=== PATIENT | female | born 1960 | race African-American/Black ===

== ENCOUNTER 2017-02-08 19:48 | Emergency (ER) | payer BC ==
[2017-02-08 20:28] LABS: Bilirubin Negative (Negative); Blood, Urine Negative (Negative); Glucose, Urine (Dipstick) Negative (Negative); Ketone, Urine Trace mg/dL (Negative); Nitrite Negative (Negative); Protein, Urine (Dipstick) Negative (Neg-Trace)
[2017-02-08] MEDS ORDERED: Morphine Sulfate 2 MG/ML SYRINGE ONE (20:40)
[2017-02-08] MEDS ORDERED: Ketorolac Tromethamine 30 MG/ML VIAL ONE (20:41)
[2017-02-08] MEDS ORDERED: methylPREDNISolone Sod Succ/PF 125 MG/2 ML VIAL ONE (20:41)
[2017-02-08 20:45] LABS: #Basophils 0.1 thou/uL (0.0-0.2); #Eosinphils 0.1 thou/uL (0.0-0.7); #Lymphocytes 2.4 thou/uL (1.20-3.40); #Monocytes 0.5 thou/uL (0.11-0.59); #Neutrophils 2.7 thou/uL (1.40-6.50); %Basophils 1.3 % (0.0-1.0); %Eosinophils 1.4 % (0.0-10.0); %Lymphocytes 41.8 % (21.0-51.0); %Monocytes 8.4 % (0.0-10.0); Hematocrit 38.2 % (36.0-47.0); Red Blood Cell (RBC) Count 4.38 mill/uL (4.20-5.40); White Blood Cell (WBC) Count 5.7 thou/uL (4.8-10.8)
[2017-02-08 20:59] LABS: ALT (SGPT) 24 U/L (8-55); AST (SGOT) 23 U/L (5-34); Alkaline Phosphatase 74 U/L (40-150); Anion Gap 12 mmol/L (10-20); BUN (Urea Nitrogen) 14 mg/dL (9.8-20.1); Bilirubin, Total 0.6 mg/dL (0.2-1.2); Calc. Creatinine Clearance 0 mL/min (70-130); Calcium 10.1 mg/dL (7.8-10.44); Carbon Dioxide 28 mmol/L (22-29); Chloride 105 mmol/L (98-107); Estimated GFR-MDRD 84; Globulin 3.7 g/dL (2.4-3.5); Protein, Total 8.2 g/dL (6.0-8.3)
== END 2017-02-08 22:28 | disposition home or self-care (01) ==
LOC: SCSER 19:48
DX: G89.29 Other chronic pain (principal); M54.5 Low back pain; J45.909 Unspecified asthma, uncomplicated; F32.9 Major depressive disorder, single episode, unspecified; Z87.891 Personal history of nicotine dependence
CPT/HCPCS: 80053; 81003; 85025; 86140; 87491; 87591; 96374; 96375; 96376; J1885; J2270; J2930

== ENCOUNTER 2017-06-12 09:51 | Outpatient (CLI) | payer BC ==
--- NOTE | 2017-06-12 12:00 | MRI ---
MRI LUMBAR SPINE WITHOUT CONTRAST: HISTORY: Back pain. Bilateral leg pain for six years. COMPARISON: None. TECHNIQUE: Multiplanar, multisequence MR images were obtained of the lumbar spine without contrast. FINDINGS: Generalized disk desiccation is seen. 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 The conus medullaris terminates normally at L1. There is a 2.1 cm cyst in the right kid jose j. The other prevertebral and paraspinal soft tissues are unremarkable. T12-L1: A small disk osteophyte complex is seen. Mild bilateral posterior facet arthrosis. No cent ral canal stenosis. No neural foraminal stenosis. L1-L2: A small disk osteophyte complex is seen. Mild bilateral posterior facet arthrosis. No centr al canal stenosis. No neural foraminal stenosis. L2-L3: A small disk osteophyte complex is seen. Mild bilateral posterior facet arthrosis. No centr al canal stenosis. No neural foraminal stenosis. L3-L4: A small disk osteophyte complex is seen. Moderate bilateral posterior facet arthrosis. No c entral canal stenosis. Moderate bilateral neural foraminal stenosis. L4-L5: A small disk osteophyte complex is seen. Moderate bilateral posterior facet arthrosis. Mild central canal stenosis. Moderate bilateral neural foraminal stenosis. L5-S1: Unremarkable. IMPRESSION: Degenerative changes of the lumbar spine, as above. POS: [facility]
== END 2017-06-12 09:52 | disposition home or self-care (01) ==
LOC: MRI 09:51
PROVIDERS: ATTEND Neurological Surgery
DX: M47.26 Other spondylosis with radiculopathy, lumbar region (principal)
CPT/HCPCS: 72148

== ENCOUNTER 2017-07-06 20:25 | Emergency (ER) | payer BC ==
[2017-07-06] MEDS ORDERED: Ketorolac Tromethamine 30 MG/ML VIAL ONE (21:23)
--- NOTE | 2017-07-06 21:56 | RAD ---
LUMBAR SPINE THREE VIEWS: 07/06/17 HISTORY: Trauma, back pain. FINDINGS/IMPRESSION: Comparison made with exam of 01/18/14. Levoscoliosis of the lumbar spine is again noted. Degenerative changes are present. No acute fracture or subluxation is identified. POS: [facility]
--- NOTE | 2017-07-06 21:57 | RAD ---
RIGHT HIP TWO VIEWS: 07/06/17 HISTORY: Trauma, fall, right hip pain. FINDINGS/IMPRESSION: No acute fracture or dislocation is identified. POS: [facility]
--- NOTE | 2017-07-06 21:57 | RAD ---
RIGHT FEMUR TWO VIEWS: 07/06/17 HISTORY: Fall, trauma, right thigh pain, right lower extremity pain. FINDINGS/IMPRESSION: The right femur is intact. POS: [facility]
--- NOTE | 2017-07-06 21:59 | RAD ---
RIGHT KNEE FOUR VIEWS: 07/06/17 HISTORY: Trauma, fall, right knee pain. FINDINGS/IMPRESSION: No acute fracture or dislocation is seen. No significant interval changes seen since exam of 08/29/16. The small well corticated round ossification or calcification superior to the upper pole of the town[place] la is stable since 01/30/16. POS: [facility]
[2017-07-06] MEDS ORDERED: Dexamethasone 4 mg/ml Vial ONE (22:29)
[2017-07-06] MEDS ORDERED: Morphine 4 MG/ML VIAL ONE (22:29)
== END 2017-07-06 23:01 | disposition home or self-care (01) ==
LOC: ERS 20:25
DX: M54.5 Low back pain (principal); J45.909 Unspecified asthma, uncomplicated; F32.9 Major depressive disorder, single episode, unspecified; Z87.891 Personal history of nicotine dependence; Z79.899 Other long term (current) drug therapy; W10.9XXA Fall (on) (from) unspecified stairs and steps, initial encounter
CPT/HCPCS: 72100; 96372; J1100; J1885; J2270

== ENCOUNTER 2017-07-13 13:58 | Outpatient (CLI) | payer BC ==
[2017-07-13 14:52] LABS: Hemoglobin 12.6 g/dL (12.0-16.0); Mean Corpuscular HGB CONC 31.1 g/dL (32.0-36.0); Mean Corpuscular Hemoglobin 28.8 pg (27.0-31.0); Mean Corpuscular Volume 92.5 fl (81.0-99.0); Mean Platelet Volume 8.6 fL (7.4-10.4); Platelet Count 289 thou/uL (130-400); RBC Distribution Width 11.9 % (11.5-14.5); Red Blood Cell (RBC) Count 4.39 mill/uL (4.20-5.40); White Blood Cell (WBC) Count 9.3 thou/uL (4.8-10.8)
[2017-07-13 15:13] LABS: Anion Gap 12 mmol/L (10-20); BUN (Urea Nitrogen) 12 mg/dL (9.8-20.1); Calc. Creatinine Clearance 0 mL/min (70-130); Calcium 9.6 mg/dL (7.8-10.44); Carbon Dioxide 30 mmol/L (22-29); Chloride 103 mmol/L (98-107); Estimated GFR-MDRD 80; Glucose 110 mg/dL (70-105); Potassium 3.7 mmol/L (3.5-5.1); Sodium 141 mmol/L (136-145)
== END 2017-07-13 13:59 | disposition home or self-care (01) ==
LOC: LABBT 13:58
PROVIDERS: ATTEND Neurological Surgery
DX: Z01.818 Encounter for other preprocedural examination (principal); Z01.812 Encounter for preprocedural laboratory examination; M54.16 Radiculopathy, lumbar region
CPT/HCPCS: 80048; 85027; 93005; 93010

== ENCOUNTER 2017-07-16 07:03 | Day surgery (SDC) | payer BC ==
[2017-07-13 10:40] VITALS: BMI 25.8
[2017-07-16] MEDS ORDERED: CEFAZOLIN/Water 2 GM/20 ML SYRINGE ONE (08:49)
[2017-07-16] MEDS ORDERED: Sodium Chloride 0.9% 10 ML ONE (09:05)
[2017-07-16] MEDS ORDERED: Fentanyl 250 MCG/5 ML VIAL ONE ×2 (09:07→11:17)
[2017-07-16] MEDS ORDERED: Midazolam HCl 2 mg/2 ml Vial ONE (09:07)
[2017-07-16] MEDS ORDERED: Lidocaine 1% PF 5 ML VIAL ONE (09:31)
[2017-07-16] MEDS ORDERED: Ondansetron HCl/PF 4 MG/2 ML Vial ONE (09:31)
[2017-07-16] MEDS ORDERED: Glycopyrrolate 0.2 MG/ML 5 ML SYRINGE ONE (09:31)
[2017-07-16] MEDS ORDERED: Dexamethasone 20 MG/5 ML VIAL ONE (09:31)
[2017-07-16] MEDS ORDERED: Propofol 200 MG/20 ML VIAL ONE (09:31)
--- NOTE | 2017-07-16 11:43 | OP ---
DATE OF PROCEDURE: 07/16/2017 SURGEON: Maxime Ruano M.D. [employer] OPERATOR: Yu Hollingsworth PROCEDURE: Right L3-4 laminectomy, facetectomy, foraminotomy, interbody arthrodesis, intravertebral biomechanical device, local morselized autograft, demineralized bone matrix, posterior lateral arthro desis L3-4. PROCEDURE IN DETAIL: The patient was brought to the operating room and intubated. She was rolled in the prone position on gel-filled chest rolls. Incision made exposing L3 and L4 bilaterally and our level was confirmed by x-ray. We performed a right-sided L3-4 laminectomy and total facetectomy comp letely decompressing right L3 and right L4. Next, the disc was incised and debrided and the bony end plates decorticated for the purpose of arthrodesis. An appropriately sized intravertebral biomechani mayito PEEK device was brought into the field, filled with demineralized bone matrix, local morselized a utograft, and tapped into place securely at L3-4. Next, pedicle screws were placed at right L3 and r ight L4 using lateral fluoroscopic guidance and the positioning was confirmed with rotational x-ray. Lew was secured between the screws, connected by nuts which were final tightened. The wound was the n extensively irrigated, immaculate hemostasis was secured. A combination of demineralized bone matr ix and local morselized autograft was laid over the laminar and posterolateral surfaces for the purpo se of arthrodesis. Vancomycin powder was applied and the wound was closed in anatomic layers.
[2017-07-16] MEDS ORDERED: HYDROmorphone 0.5 MG/0.5 ML SYRINGE ONE (12:17)
[2017-07-16] MEDS ORDERED: Promethazine HCl 25 MG/ML VIAL ONE (12:20)
[2017-07-16] MEDS ORDERED: HYDROcodone/Acetaminophen 5/325 mg Tablet ONE (15:06)
== END 2017-07-16 16:54 | disposition home or self-care (01) ==
LOC: SDC 07:03
PROVIDERS: ATTEND Neurological Surgery
PROC: 0ST20ZZ Resection of Lumbar Vertebral Disc, Open Approach (ICD-10-PCS; principal; 2017-07-16)
PROC: 0SG00AJ Fusion of Lumbar Vertebral Joint with Interbody Fusion Device, Posterior Approach, Anterior Column, Open Approach (ICD-10-PCS; principal; 2017-07-16)
DX: M54.16 Radiculopathy, lumbar region (principal); J45.909 Unspecified asthma, uncomplicated; J44.9 Chronic obstructive pulmonary disease, unspecified; F41.9 Anxiety disorder, unspecified; F32.9 Major depressive disorder, single episode, unspecified; E03.9 Hypothyroidism, unspecified; M06.9 Rheumatoid arthritis, unspecified; Z79.899 Other long term (current) drug therapy
CPT/HCPCS: 76001; 96374; 96375; A4216; C1713; C1768; J1100; J1170; J2001; J2250; J2405; J2550; J2704; J3010; J3370; J3490

== ENCOUNTER 2017-08-02 15:27 | Outpatient (CLI) | payer BC ==
--- NOTE | 2017-08-02 15:50 | RAD ---
TWO VIEWS LUMBAR SPINE: History: Follow up surgery. Comparison: 07-06-17 FINDINGS: There is an intervertebral disc space now present at L3-4. There is posterolateral spinal instrumenta tion spanning L3-4 on the right. The pedicle screws and interconnecting von projecting in the expecte d position. Thoracolumbar scoliosis is similar. IMPRESSION: Post-operative lumbar spine. POS: [facility]
== END 2017-08-02 15:28 | disposition home or self-care (01) ==
LOC: TBSIIMAG 15:27
PROVIDERS: ATTEND Neurological Surgery
DX: M54.9 Dorsalgia, unspecified (principal); Z98.890 Other specified postprocedural states
CPT/HCPCS: 72100

== ENCOUNTER 2017-09-13 14:16 | Outpatient (CLI) | payer MEDICAID ==
--- NOTE | 2017-09-13 15:09 | RAD ---
TWO VIEWS LUMBOSACRAL SPINE: COMPARISON: 08/02/17. HISTORY: Lumbar radiculopathy and right hip pain. FINDINGS: Two views lumbosacral spine show the patient to be status post posterior fusion of L3 and L4 with rig ht-sided pedicle screws. There is scoliotic curvature of the spine. A disk spacer is seen along the right aspect of the intervening disk space. No perihardware lucency is seen. The vertebral bodies demonstrate normal alignment without subluxation. IMPRESSION: Postsurgical changes of the lumbar spine without evidence of complication. POS: [facility]
== END 2017-09-13 14:17 | disposition home or self-care (01) ==
LOC: TBSIIMAG 14:16
PROVIDERS: ATTEND Neurological Surgery
DX: M51.16 Intervertebral disc disorders with radiculopathy, lumbar region (principal); Z98.890 Other specified postprocedural states
CPT/HCPCS: 72100

== ENCOUNTER 2017-09-28 10:02 | Outpatient (CLI) | payer MEDICAID ==
--- NOTE | 2017-09-28 11:26 | RAD ---
RIGHT HIP TWO VIEWS: HISTORY: Pain. COMPARISON: 07/06/2017 FINDINGS: The contour of the femoral head is maintained. No fracture. Hip joint space is preserved. IMPRESSION: Unremarkable two views right hip. POS: [facility]
--- NOTE | 2017-09-28 12:40 | MRI ---
MRI RIGHT HIP WITHOUT CONTRAST ENHANCEMENT: HISTORY: Right hip pain. FINDINGS: Postoperative changes of the lower lumbar spine are noted. The SI joints are symmetric. No signs of any insufficiency type fracture. Some very mild edema changes in the region of the greater trochanter of the left hip, suggesting some mild trochanteric bursitis type change. Small field of view images of the right hip show arthritic change. The hip labrum is not very well v isualized on this nonarthrographic exam. No definite abnormalities. There is a lower grade partial tear of the more anterior aspect of the gluteus medius tendon. The gluteus minimus tendon appears in tact. No signs of muscle strain. Hamstring tendon origins appear unremarkable. IMPRESSION: Mild arthritic changes of the right hip with a lower grade partial tear of the gluteus medius tendon insertion on the greater trochanter. POS: [facility]
== END 2017-09-28 10:03 | disposition home or self-care (01) ==
LOC: TBSIIMAG 10:02
PROVIDERS: ATTEND Neurological Surgery
DX: M16.11 Unilateral primary osteoarthritis, right hip (principal); S76.011A Strain of muscle, fascia and tendon of right hip, initial encounter

== ENCOUNTER 2017-11-03 20:03 | Emergency (ER) | payer BC, OTHER ==
--- NOTE | 2017-11-03 20:52 | RAD ---
FOUR VIEWS OF THE RIGHT KNEE: 11/03/17 COMPARISON: 07/06/17. HISTORY: Fall down stairs with the right knee and hip pain. FINDINGS: Four views of the right knee shows no evidence of acute fracture or dislocation. No knee effusion is seen. No degenerative changes are seen. IMPRESSION: Unremarkable exam. POS: [facility]
--- NOTE | 2017-11-03 20:53 | RAD ---
TWO VIEWS OF THE RIGHT HIP 11/03/17 COMPARISON: 09/28/17. HISTORY: Fell down stairs with right hip pain. FINDINGS: Two views of the right hip shows no evidence of acute fracture or dislocation. No degenerative change s are seen in the right hip. Hardware is seen in the spine. IMPRESSION: No evidence of acute osseous abnormality of the right hip. POS: [facility]
[2017-11-03] MEDS ORDERED: Cyclobenzaprine 10 MG TAB ONE (21:17)
[2017-11-03] MEDS ORDERED: Ketorolac Tromethamine 60 MG/2 ML VIAL ONE (21:17)
== END 2017-11-03 22:09 | disposition home or self-care (01) ==
LOC: ERS 20:03
DX: M25.551 Pain in right hip (principal); M25.561 Pain in right knee; J45.909 Unspecified asthma, uncomplicated; G89.29 Other chronic pain; F32.9 Major depressive disorder, single episode, unspecified; E28.2 Polycystic ovarian syndrome; Z87.891 Personal history of nicotine dependence; Z79.899 Other long term (current) drug therapy; W10.9XXA Fall (on) (from) unspecified stairs and steps, initial encounter
CPT/HCPCS: 96372; J1885

== ENCOUNTER 2017-12-04 15:15 | Outpatient (CLI) | payer MEDICAID, OTHER ==
--- NOTE | 2017-12-04 16:16 | RAD ---
TWO VIEWS LUMBAR SPINE: 12/04/17 HISTORY: Lumbar spine, M54.16. AP and lateral views lumbar spine is obtained on 12/04/17. Comparison made to previous exam from 09/13/17. Images demonstrate S-shaped scoliosis of the spine. Right L3-[address]. No evidence of acute lumbar spine fracture seen. No signific ant interval changes are seen since the previous comparison exam from August 2017. IMPRESSION: 1. Postsurgical changes. 2. Scoliosis. POS: [facility]
== END 2017-12-04 15:16 | disposition home or self-care (01) ==
LOC: TBSIIMAG 15:15
PROVIDERS: ATTEND Neurological Surgery
DX: M54.16 Radiculopathy, lumbar region (principal); M41.9 Scoliosis, unspecified; Z98.890 Other specified postprocedural states
CPT/HCPCS: 72100

== ENCOUNTER 2018-03-07 10:32 | Emergency (ER) | payer OTHER, SELFPAY ==
[2018-03-07 11:34] LABS: #Basophils 0.1 thou/uL (0.0-0.2); #Eosinphils 0.1 thou/uL (0.0-0.7); #Lymphocytes 2.4 thou/uL (1.20-3.40); #Monocytes 0.5 thou/uL (0.11-0.59); #Neutrophils 2.2 thou/uL (1.40-6.50); %Basophils 2.1 % (0.0-1.0); %Eosinophils 2.3 % (0.0-10.0); %Lymphocytes 44.9 % (21.0-51.0); %Monocytes 8.5 % (0.0-10.0); %Neutrophils 42.1 % (42.0-75.0); Hemoglobin 13.4 g/dL (12.0-16.0); Mean Corpuscular HGB CONC 30.9 g/dL (32.0-36.0); Mean Corpuscular Hemoglobin 27.9 pg (27.0-31.0); Mean Corpuscular Volume 90.2 fL (78.0-98.0); Mean Platelet Volume 7.8 fL (7.4-10.4); Platelet Count 299 thou/uL (130-400); RBC Distribution Width 11.4 % (11.5-14.5); Red Blood Cell (RBC) Count 4.81 mill/uL (4.20-5.40); White Blood Cell (WBC) Count 5.2 thou/uL (4.8-10.8)
--- NOTE | 2018-03-07 11:35 | RAD ---
PA AND LATERAL VIEWS OF THE CHEST: History: Cough. FINDINGS: The heart size is normal. The lungs are expanded without focal areas of consolidation, pneumothorax, or pleural effusions. There is scoliosis of the spine. There are post op changes and metallic hardwar e in the lumbar spine. IMPRESSION: No radiographic evidence of acute cardiopulmonary process. POS: [facility]
[2018-03-07 11:56] LABS: ALT (SGPT) 27 U/L (8-55); AST (SGOT) 24 U/L (5-34); Albumin 4.5 g/dL (3.5-5.0); Alkaline Phosphatase 72 U/L (40-150); Anion Gap 11 mmol/L (10-20); BUN (Urea Nitrogen) 8 mg/dL (9.8-20.1); Bilirubin, Total 0.7 mg/dL (0.2-1.2); Calc. Creatinine Clearance 0 mL/min (70-130); Calcium 10.1 mg/dL (7.8-10.44); Carbon Dioxide 33 mmol/L (22-29); Chloride 97 mmol/L (98-107); Estimated GFR-MDRD 75; Globulin 3.5 g/dL (2.4-3.5); Glucose 79 mg/dL (70-105); Potassium 3.6 mmol/L (3.5-5.1); Sodium 137 mmol/L (136-145)
[2018-03-07] MEDS ORDERED: Ondansetron ODT 4 MG TAB ONE (11:57)
[2018-03-07] MEDS ORDERED: predniSONE 20 MG TAB ONE (11:57)
== END 2018-03-07 13:28 | disposition home or self-care (01) ==
LOC: ERS 10:32
DX: J45.901 Unspecified asthma with (acute) exacerbation (principal); Z87.891 Personal history of nicotine dependence; Z79.899 Other long term (current) drug therapy
CPT/HCPCS: 36415; 71046; 80053; 85025; 94640; J7506; J7620; Q0162

== ENCOUNTER 2018-09-11 11:41 | Outpatient (CLI) | payer BC ==
--- NOTE | 2018-09-11 12:02 | RAD ---
EXAM: 3 views of the right foot HISTORY: Foot pain COMPARISON: None FINDINGS: 3 views of the right foot shows no evidence of acute fracture or dislocation. No soft tissu e swelling is seen. No degenerative changes are present. IMPRESSION: No evidence of acute osseous abnormality.
== END 2018-09-11 11:42 | disposition home or self-care (01) ==
LOC: RAD 11:41
PROVIDERS: ATTEND Family Medicine
DX: S99.921A Unspecified injury of right foot, initial encounter (principal)

== ENCOUNTER 2018-09-14 07:10 | Emergency (ER) | payer BC ==
[2018-09-14] MEDS ORDERED: Dexamethasone 10 MG/ML VIAL ONE (07:43)
[2018-09-14] MEDS ORDERED: Ketorolac Tromethamine 60 MG/2 ML VIAL ONE (07:43)
[2018-09-14] MEDS ORDERED: Albuterol Sulfate 2.5 mg/3 ml Neb ONE (07:51)
--- NOTE | 2018-09-14 08:01 | RAD ---
PORTABLE CHEST: HISTORY: Fever and cough. FINDINGS: Lungs appear clear on this 1-view projection. Heart and mediastinum unremarkable. IMPRESSION: No acute finding. POS: [facility]
== END 2018-09-14 08:55 | disposition home or self-care (01) ==
LOC: ERS 07:10
DX: J20.9 Acute bronchitis, unspecified (principal); I10 Essential (primary) hypertension; E03.9 Hypothyroidism, unspecified; Z87.891 Personal history of nicotine dependence; Z79.899 Other long term (current) drug therapy; Z79.51 Long term (current) use of inhaled steroids
CPT/HCPCS: 71046; 94640; 96372; J1100; J1885; J7611

== ENCOUNTER 2018-10-02 14:07 | Outpatient (CLI) | payer BC ==
--- NOTE | 2018-10-02 14:30 | RAD ---
EXAM: Chest 2 views: HISTORY: Dyspnea COMPARISON: 09/14/2018 FINDINGS: Prominent levoscoliosis with postop changes in the lumbar spine. Heart size:Within normal limits. Lungs:Clear of acute process. Atherosclerotic changes of the aorta. No confluent pneumonia, overt edema, pleural effusion, pneumothorax, or other significant acute proce ss. IMPRESSION: Stable exam. Atherosclerosis of the aorta. No acute intrathoracic disease.
== END 2018-10-02 14:08 | disposition home or self-care (01) ==
LOC: RAD 14:07
PROVIDERS: ATTEND Pediatrics
DX: R06.00 Dyspnea, unspecified (principal); I70.0 Atherosclerosis of aorta
CPT/HCPCS: 71046

== ENCOUNTER → 2018-10-02 | Outpatient (CLI) | payer BC ==
--- NOTE | 2018-10-08 16:25 | RAD ---
"PRELIMINARY REPORT" EXAM: Chest 2 views: HISTORY: Dyspnea COMPARISON: 09/14/2018 FINDINGS: Prominent levoscoliosis with postop changes in the lumbar spine. Heart size: Within normal limits. Lungs: Clear of acute process. Atherosclerotic changes of the aorta. No confluent pneumonia, overt edema, pleural effusion, pneumothorax, or other significant acute proce ss. IMPRESSION: Stable exam. Atherosclerosis of the aorta. No acute intrathoracic disease. Transcribed Date/Time: 10/08/2018 4:22 PM
== END ==
LOC: RAD 14:08
PROVIDERS: ATTEND Internal Medicine Critical Care Medicine
DX: R06.00 Dyspnea, unspecified (principal); I70.0 Atherosclerosis of aorta
CPT/HCPCS: 71046

== ENCOUNTER 2019-03-18 16:50 | Emergency (ER) | payer BC ==
[2019-03-18 17:59] LABS: Bacteria/HPF None Seen HPF (None Seen); Bilirubin Negative (Negative); Blood, Urine Negative (Negative); Calcium Oxalate Crystals 4+ HPF (None Seen); Clarity Clear (Clear); Glucose, Urine (Dipstick) Normal (Negative); Leukocyte 25 Leu/uL (Negative); Mucous/LPF Rare LPF (<2+); Nitrite Negative (Negative); Protein, Urine (Dipstick) 10 mg/dL (Neg-Trace); RBC/HPF 0-3 HPF (0-3); Squamous Epithelial 0-3 HPF (0-3); WBC/HPF 0-3 HPF (0-3)
[2019-03-18] MEDS ORDERED: Morphine 4 MG/ML VIAL ONE (18:18)
[2019-03-18] MEDS ORDERED: Ondansetron PF 4 MG/2 ML Vial ONE (18:19)
[2019-03-18 18:31] LABS: #Basophils 0.1 thou/uL (0.0-0.2); #Eosinphils 0.1 thou/uL (0.0-0.7); #Lymphocytes 2.5 thou/uL (1.20-3.40); #Monocytes 0.4 thou/uL (0.11-0.59); #Neutrophils 2.4 thou/uL (1.40-6.50); %Basophils 0.9 % (0.0-1.0); %Eosinophils 1.7 % (0.0-10.0); %Lymphocytes 45.6 % (21.0-51.0); %Monocytes 7.5 % (0.0-10.0); %Neutrophils 44.3 % (42.0-75.0); Hemoglobin 12.5 g/dL (12.0-16.0); Mean Corpuscular Hemoglobin 29.5 pg (27.0-31.0); Mean Corpuscular Volume 89.5 fL (78.0-98.0); Mean Platelet Volume 8.5 fL (7.4-10.4); Platelet Count 241 thou/uL (130-400); RBC Distribution Width 11.5 % (11.5-14.5); Red Blood Cell (RBC) Count 4.23 mill/uL (4.20-5.40); White Blood Cell (WBC) Count 5.5 thou/uL (4.8-10.8)
--- NOTE | 2019-03-18 19:06 | CT ---
EXAM: Abdomen and pelvic CT scan without contrast: HISTORY: Right flank pain COMPARISON: 12/03/2016 FINDINGS: Moderate lumbar spine scoliosis and postoperative pedicle screws on the right side at L3 and L4. Left hemidiaphragm elevation. The visualized lung bases are clear. Liver: Unremarkable. Gallbladder:Postop cholecystectomy. Pancreas:Unremarkable Spleen:Unremarkable. Adrenal glands:Unremarkable. Kidneys:Tiny nonobstructing left upper pole renal calculus. No evidence for acute obstruction or u reteral calculus. 2 cm diameter circumscribed hypodensity in the right kidney evidence for small cysts, stable. No evidence for bowel obstruction. No CT evidence for acute appendicitis. The urinary bladder is unremarkable. Reproductive system:Unremarkable No abscess, adenopathy, or abnormal fluid collection within the abdomen or pelvis. Moderate solid fecal material throughout the colon. IMPRESSION: No obstructing calculus. Normal-appearing appendix. Tiny nonobstructing left upper pole renal calc ulus. Other findings as above. No significant acute process.
[2019-03-18 19:30] LABS: ALT (SGPT) 14 U/L (8-55); AST (SGOT) 18 U/L (5-34); Albumin 4.6 g/dL (3.5-5.0); Alkaline Phosphatase 63 U/L (40-110); Anion Gap 15 mmol/L (10-20); BUN (Urea Nitrogen) 17 mg/dL (9.8-20.1); Bilirubin, Total 0.7 mg/dL (0.2-1.2); Calc. Creatinine Clearance 0 mL/min (70-130); Calcium 9.8 mg/dL (7.8-10.44); Carbon Dioxide 24 mmol/L (22-29); Chloride 105 mmol/L (98-107); Estimated GFR-MDRD 68; Globulin 3.2 g/dL (2.4-3.5); Glucose 78 mg/dL (70-105); Lipase 25 U/L (8-78); Potassium 3.9 mmol/L (3.5-5.1); Protein, Total 7.8 g/dL (6.0-8.3); Sodium 140 mmol/L (136-145)
== END 2019-03-18 22:39 | disposition home or self-care (01) ==
LOC: ERS 16:50
DX: N20.0 Calculus of kidney (principal); N28.1 Cyst of kidney, acquired; J45.909 Unspecified asthma, uncomplicated; I10 Essential (primary) hypertension; E03.9 Hypothyroidism, unspecified; Z87.891 Personal history of nicotine dependence; Z79.899 Other long term (current) drug therapy; Z79.51 Long term (current) use of inhaled steroids
CPT/HCPCS: 36415; 74176; 80053; 81003; 81015; 83690; 85025; 96361; 96374; 96375; J2270; J2405

== ENCOUNTER 2019-03-21 19:10 | Emergency (ER) | payer BC ==
[2019-03-21 20:00] LABS: #Basophils 0.1 thou/uL (0.0-0.2); #Eosinphils 0.1 thou/uL (0.0-0.7); #Lymphocytes 2.9 thou/uL (1.20-3.40); #Monocytes 0.5 thou/uL (0.11-0.59); #Neutrophils 2.5 thou/uL (1.40-6.50); %Basophils 1.1 % (0.0-1.0); %Monocytes 7.5 % (0.0-10.0); %Neutrophils 41.5 % (42.0-75.0); Mean Corpuscular HGB CONC 32.5 g/dL (32.0-36.0); Mean Corpuscular Hemoglobin 29.5 pg (27.0-31.0); Mean Corpuscular Volume 90.5 fL (78.0-98.0); Mean Platelet Volume 8.6 fL (7.4-10.4); Platelet Count 255 thou/uL (130-400); RBC Distribution Width 11.5 % (11.5-14.5); Red Blood Cell (RBC) Count 4.41 mill/uL (4.20-5.40)
[2019-03-21 20:05] LABS: Bilirubin Negative (Negative); Blood, Urine Negative (Negative); Clarity Clear (Clear); Glucose, Urine (Dipstick) Normal (Negative); Leukocyte Negative Leu/uL (Negative); Nitrite Negative (Negative); Protein, Urine (Dipstick) Negative (Neg-Trace); Urobilinogen Normal mg/dL (Less than 2)
[2019-03-21] MEDS ORDERED: Ondansetron PF 4 MG/2 ML Vial ONE (20:09)
[2019-03-21] MEDS ORDERED: Morphine 4 MG/ML VIAL ONE ×2 (20:09→20:54)
[2019-03-21 20:22] LABS: ALT (SGPT) 16 U/L (8-55); AST (SGOT) 22 U/L (5-34); Albumin 4.8 g/dL (3.5-5.0); Alkaline Phosphatase 62 U/L (40-110); Anion Gap 11 mmol/L (10-20); BUN (Urea Nitrogen) 12 mg/dL (9.8-20.1); Bilirubin, Total 0.9 mg/dL (0.2-1.2); Calc. Creatinine Clearance 0 mL/min (70-130); Calcium 9.8 mg/dL (7.8-10.44); Carbon Dioxide 28 mmol/L (22-29); Chloride 104 mmol/L (98-107); Estimated GFR-MDRD 78; Globulin 3.5 g/dL (2.4-3.5); Glucose 86 mg/dL (70-105); Potassium 3.8 mmol/L (3.5-5.1); Protein, Total 8.3 g/dL (6.0-8.3); Sodium 139 mmol/L (136-145)
--- NOTE | 2019-03-21 22:25 | MRI ---
MRI Lumbar Spine WO Con History: Pain Comparison: Lumbar spine MRI 2018 Findings: T2 hyperintense foci of both kidneys. No hydronephrosis. No marrow infiltrative process. No acute fracture or malalignment. Levels are as follows: L1/L2: Circumferential disc bulge. Mild effacement of ventral CSF space. No significant neural forami nal narrowing. L2-3: Mild circumferential disc bulge. Right subforaminal disc osteophyte complex. No significant alba ral foraminal or spinal canal narrowing. L3-4: Mild degenerative disc space height loss. Bilateral subforaminal disc osteophyte complexes, sma ll. Moderate left and mild right neural foraminal narrowing. L4/L5: Mild disc desiccation. 1 mm anterolisthesis. Circumferential disc bulge greatest in the left s ubforaminal zone. Moderate bilateral neural foraminal narrowing with abutment of both exiting nerve roots. L5/S1: Normal disc hydration. No neural foraminal or spinal canal narrowing. Right unilateral posterior spinal fusion hardware at L3/L4. Impression: Mild spondylosis as described. No evidence for cord impingement.
== END 2019-03-21 23:53 | disposition home or self-care (01) ==
LOC: ERS 19:10
DX: M54.5 Low back pain (principal); M79.662 Pain in left lower leg; M79.661 Pain in right lower leg; I10 Essential (primary) hypertension; E03.9 Hypothyroidism, unspecified; J45.909 Unspecified asthma, uncomplicated; Z79.899 Other long term (current) drug therapy; Z87.891 Personal history of nicotine dependence
CPT/HCPCS: 36415; 72148; 80053; 81003; 85025; 87086; 96374; 96375; 96376; J2270; J2405

== ENCOUNTER 2019-05-06 06:54 | Day surgery (SDC) | payer BC, OTHER ==
[2019-05-05 09:13] VITALS: BMI 28.3
[2019-05-06 07:37] VITALS: BP 132/90; TEMP 98.2
--- NOTE | 2019-05-06 08:59 | RAD ---
Lumbar spine myelogram: 05/06/2019 COMPARISON: None HISTORY: Low back pain, degenerative disc disease, lumbar radiculopathy FINDINGS: Informed consent for lumbar spine myelogram obtained prior to the procedure. Mica Layer imaging of the lumbar spine demonstrates levoscoliosis of the mid lumbar spine with dextroscoli osis of the thoracolumbar junction. Right-sided L4 and L5 pedicle screws are present with a vertically oriented interlocking von. There is an intervertebral disc device at L3-4. Lumbar pedicles appear intact on frontal imaging. Lateral exam demonstrates no anterolisthesis or ret rolisthesis. The patient was placed on the fluoroscopic table in the oblique prone position and skin overlying the lower lumbar spine was prepped and draped in normal sterile fashion. The skin was anesthetized with 1% buffered lidocaine at the L3 level. With intermittent fluoroscopic guidance, a 22-gauge spinal needle was advanced into the thecal sac at the L3 level and removal of the stylet yields clear cerebrospinal fluid. Subsequently, approximately 12 cc of Isovue-200 was injected, outlining nerve roots of the cauda equina and filling the thecal sac. Needle was removed. Patient tolerated the procedure well. Exposure data: 1.4 minutes fluoroscopic time, 561.5 mcg/sq m. IMPRESSION: Successful lumbar spine myelogram. CT myelogram to follow.
[2019-05-06] MEDS ORDERED: FLU VACC QS2019-20(6MOS UP)/PF 60 MCG/0.5 ML SYRINGE IM ONE (09:00)
--- NOTE | 2019-05-06 09:10 | CT ---
CT myelogram lumbar spine: 05/06/2019 HISTORY: Bilateral lower extremity radiculopathy TECHNIQUE: Following the intrathecal administration of iodinated contrast media, axial CT imaging at 2.5 mm intervals through the lumbar spine with coronal and sagittal reformatted imaging. FINDINGS: There is an S shaped scoliotic curvature with dextroscoliosis at the thoracolumbar junction and mid lumbar spine levoscoliosis. Right-sided pedicle screws are present at L3 and L4 with vertically oriented interlocking rods. There is an intervertebral disc device within the right latera l aspect of the L3-4 interspace. Limited assessment of the nonosseous structures demonstrates a punctate nonobstructing stone in the u pper pole of the left kidney. No anterolisthesis is noted within the lumbar spine. T12-L1: Mild bilateral facet hypertrophy, left greater than right. Mild left neural foraminal stenosi s. No significant central canal or right neural foraminal stenosis. L1-2: Mild disc bulge. No central canal stenosis. Bilateral facet hypertrophy noted, right greater th an left. Mild right neural foraminal stenosis. No significant left neural foraminal stenosis. L2-3: Mild facet hypertrophy on the right. No significant central canal or neural foraminal stenosis. L3-4: Mild bilateral facet hypertrophy, right greater than left. Mild right neural foraminal stenosis . No significant central canal or left neural foraminal stenosis. L4-5: Bilateral facet hypertrophy and hypertrophy of ligamentum flavum. Mild disc bulge. Minimal cent ral canal stenosis. Bilateral facet hypertrophy, left greater than right. Mild left neural foraminal stenosis. No significant right neural foraminal stenosis. L5-S1: Mild bilateral facet hypertrophy. No central canal or neural foraminal stenosis. No acute fracture or dislocation. No worrisome lytic or blastic bone lesion. IMPRESSION: CT myelogram of the lumbar spine as detailed above.
[2019-05-06] MEDS ORDERED: Iopamidol-M 200 41% 20 ML VIAL ONE (16:41)
== END 2019-05-06 09:55 | disposition home or self-care (01) ==
LOC: RAD 06:54
PROVIDERS: ATTEND Neurological Surgery
PROC: B02B1ZZ Computerized Tomography (CT Scan) of Spinal Cord using Low Osmolar Contrast (ICD-10-PCS; principal; 2019-05-06)
DX: M51.16 Intervertebral disc disorders with radiculopathy, lumbar region (principal); M48.061 Spinal stenosis, lumbar region without neurogenic claudication; M47.26 Other spondylosis with radiculopathy, lumbar region; I10 Essential (primary) hypertension; E03.9 Hypothyroidism, unspecified; F41.9 Anxiety disorder, unspecified; F32.9 Major depressive disorder, single episode, unspecified; I25.10 Atherosclerotic heart disease of native coronary artery without angina pectoris; J44.9 Chronic obstructive pulmonary disease, unspecified; M19.90 Unspecified osteoarthritis, unspecified site; Z79.899 Other long term (current) drug therapy; Z86.73 Personal history of transient ischemic attack (TIA), and cerebral infarction without residual deficits
CPT/HCPCS: 62304; 72132; Q9966

== ENCOUNTER 2019-10-26 20:14 | Emergency (ER) | payer BC, OTHER ==
--- NOTE | 2019-10-26 22:07 | RAD ---
Chest AP view INDICATION: Cough with history of COPD COMPARISON: None FINDINGS: Lungs: There is mild subsegmental atelectasis within both lower lobes. No consolidation is evident. Cardiac silhouette: The cardiomediastinal silhouette appears within normal limits. Pulmonary vasculature: Normal Pleural spaces: No pleural effusion or pneumothorax is demonstrated. Upper abdomen: Cholecystectomy clips. Partial visualization of lumbar spinal instrumentation. Osseous structures: Thoracolumbar scoliosis Additional findings: None. IMPRESSION: Mild bibasilar atelectasis.
[2019-10-27 14:13] LABS: SARS-CoV-2 MS2 Positive; SARS-CoV-2 N Gene Negative; SARS-CoV-2 S Gene Negative; SARS-CoV-2 orf1ab Negative
== END 2019-10-26 22:17 | disposition home or self-care (01) ==
LOC: ERS 20:14
DX: J06.9 Acute upper respiratory infection, unspecified (principal); Z20.828 Contact with and (suspected) exposure to other viral communicable diseases; J44.9 Chronic obstructive pulmonary disease, unspecified; E03.9 Hypothyroidism, unspecified; I10 Essential (primary) hypertension; F41.9 Anxiety disorder, unspecified; Z87.891 Personal history of nicotine dependence; Z79.899 Other long term (current) drug therapy
CPT/HCPCS: 71045; 87635; U0003